=== PATIENT | female | born 1965 | race Caucasian/White ===

== ENCOUNTER 2018-12-19 13:12 | Emergency (ER) | payer OTHER ==
[2018-12-19 13:18] VITALS: BP 113/77
--- NOTE | 2018-12-19 13:28 | EDPHY ---
H & P Stated Complaint: anxiety Time Seen by Provider: 12/19/18 13:15 HPI/ROS: CHIEF COMPLAINT: Anxiety, decreased appetite HISTORY OF PRESENT ILLNESS: The patient is a homeless female who is brought to the emergency department by paramedics with complaints of anxiety and decreased appetite over the past 2 days. The patient denies any fever, cough, congestion or abdominal pain. She denies any vomiting or diarrhea. The patient denies significant past medical history. The patient reportedly has been having some problems given the fact that she is homeless. She lacks housing and has been unsuccessful in securing any short-term stay at a respite facility. The patient denies suicidal or homicidal ideation. REVIEW OF SYSTEMS: A comprehensive 10 point review of systems is otherwise negative aside from elements mentioned in the history of present illness. Source: Patient Exam Limitations: No limitations - Personal History Current Tetanus/Diphtheria Vaccine: Yes Current Tetanus Diphtheria and Acellular Pertussis (TDAP): Yes - Medical/Surgical History Hx Asthma: No Hx Chronic Respiratory Disease: No Hx Diabetes: No Hx Cardiac Disease: No Hx Renal Disease: No Hx Cirrhosis: No Hx Alcoholism: No Hx HIV/AIDS: No Hx Splenectomy or Spleen Trauma: No - Social History Smoking Status: Heavy smoker - Physical Exam Exam: General Appearance: Alert, no distress Eyes: Pupils equal and round no pallor or injection ENT, Mouth: Mucous membranes moist Respiratory: There are no retractions, lungs are clear to auscultation Cardiovascular: Regular rate and rhythm Gastrointestinal: Abdomen is soft and nontender, no masses, bowel sounds normal Neurological: A&O, normal motor function, normal sensory exam, normal cranial nerves Skin: Warm and dry, no rashes Musculoskeletal: Neck is supple nontender Extremities: symmetrical, full range of motion Constitutional: Initial Vital Signs Temperature (C) 36.8 C 12/19/18 13:15 Heart Rate 94 12/19/18 13:15 Respiratory Rate 16 12/19/18 13:15 Blood Pressure 113/77 12/19/18 13:15 O2 Sat (%) 96 12/19/18 13:15 O2 Delivery Mode Room Air Medical Decision Making ED Course/Re-evaluation: Patient is nontoxic well-appearing. She was given juice in the emergency department. She would like to be discharged at this point time and follow up with [facility] as an outpatient surrounding anxiety and depression about her current homelessness. The patient does contract for safety. She is not suicidal or homicidal. The patient was also evaluated by case management while in the emergency department. Departure - Departure Disposition: Home, Routine, Self-Care Clinical Impression: Anxiety Condition: Good Instructions: Anxiety (ED) Additional Instructions: 1. Please follow up at [facility]. 2. I do recommend establishing care at [facility]. 3. Return to the ED for markedly worsening symptoms, severe pain or other concerns. Referrals: [facility],. [Clinic] - As per Instructions [facility],. [Clinic] - As per Instructions
== END 2018-12-19 13:57 | disposition home or self-care (01) ==
DX: F41.9 Anxiety disorder, unspecified (principal); F17.200 Nicotine dependence, unspecified, uncomplicated; Z59.0 Homelessness